=== PATIENT | male | born 1945 | race Two or more races ===

== ENCOUNTER 2016-09-01 12:52 | Emergency (ER) | payer BC, OTHER ==
[2016-09-01 13:07] VITALS: BMI 25.8
[2016-09-01] MEDS ORDERED: morphine CARPU-JECT 2 MG/1 ML DISP.SYRIN IVPUSH ONE ×2 (13:58→17:18)
[2016-09-01] MEDS ORDERED: DIPHTH,PERTUSS(ACELL),TET VAC 0.5 ML VIAL IM ONE (13:59)
--- NOTE | 2016-09-01 14:08 | PDOC ---
History of Present Illness - General History Source: Patient Exam Limitations: No Limitations - History of Present Illness Initial Comments: 09/01/16 19:13 The patient is a 71 year old male presenting with his , with a significant past medical history of borderline diabetes, who presents to the emergency department with a left forearm laceration after cutting himself with clippers while doing gardening work today. He notes that he tripped and fell on the clippers, which caused the laceration. He notes that the bleeding was profusely. Upon presentation the patient has the wound wrapped. He denies head injury or loss of consciousness, neck pain, back pain. He denies any other kind of injuries. The patient does not remember the last time he received a tetanus shot. The patient denies chest pain, shortness of breath, headache and dizziness. Allergies: None Past surgical history: Hernia Repair Social history: No alcohol, tobacco or drug use reported <Hakeem Cooney - Last Filed: 09/01/16 19:13> <Jamie Herrera - Last Filed: 09/01/16 20:39> - General Chief Complaint: Laceration Stated Complaint: INJURY, ARTERIAL LAC Time Seen by Provider: 09/01/16 13:32 Past History <Hakeem Cooney - Last Filed: 09/01/16 19:13> - Past Medical History Diabetes: (BORDERLINE) - Surgical History Abdominal Surgery: (HERNIA REPAIR) - Psycho/Social/Smoking Cessation Hx Suicidal Ideation: No Smoking History: Former smoker Have you smoked in the past 12 months: No Information on smoking cessation initiated: No Hx Alcohol Use: Yes (OCCASIONALLY) Drug/Substance Use Hx: No <Jamie Herrera - Last Filed: 09/01/16 20:39> - Past Medical History Allergies/Adverse Reactions: Allergies Allergy/AdvReac Type Severity Reaction Status Date / Time No Known Allergies Allergy Verified 09/01/16 13:07 Home Medications: Ambulatory Orders Cephalexin [Keflex] 500 mg PO TID #12 capsule 09/01/16 Review of Systems - Review of Systems Able to Perform ROS?: Yes Comments:: 09/01/16 19:13 CONSTITUTIONAL: No reported: Fever, Chills, Diaphoresis, Generalized Weakness, Malaise, Loss of Appetite HEENT: No reported: Rhinorrhea, Nasal Congestion, Throat Pain, Throat Swelling, Difficulty Swallowing, Mouth Swelling, Ear Pain, Eye Pain, Visual Changes CARDIOVASCULAR: No reported: Chest Pain, Syncope, Palpitations, Irregular Heart Rate, Lightheadedness, Peripheral Edema RESPIRATORY: No reported: Cough, Shortness of Breath, SOB with Exertion, Orthopnea, Wheezing , Stridor, Hemoptysis GASTROINTESTINAL: No reported: Abdominal pain, Abdominal Distension, Nausea, Vomiting, Diarrhea, Constipation, Melena, Hematochezia GENITOURINARY: No reported: Dysuria, Frequency, Urgency, Hesitancy, Flank Pain, Genital Pain MUSCULOSKELETAL: No reported: Myalgia, Arthralgia, Joint Swelling, Back pain, Neck Pain EXTREMITIES: Reported: +Left forearm laceration SKIN: No reported: Rash, Itching, Pallor HEMEATOLOGIC/IMMUNOLOGIC: No reported: Easy Bleeding, Easy Bruising, Lymphadenopathy, Frequent infections NEUROLOGIC: No reported: Headache, Focal Weakness, Paresthesias, Vertigo, Lightheadedness, Unsteady Gait, Seizure, Mental Status Changes, Incontinence <Hakeem Cooney - Last Filed: 09/01/16 19:13> *Physical Exam - Vital Signs Last Vital Signs Temp Pulse Resp BP Pulse Ox 98.2 F 89 16 146/86 97 09/01/16 12:57 09/01/16 12:57 09/01/16 12:57 09/01/16 12:57 09/01/16 12:57 - Physical Exam Comments: 09/01/16 19:13 GENERAL: The patient is awake, alert, and fully oriented, Nontoxic - in no acute distress. HEAD: Normocephalic, atraumatic. EYES: extraocular movements intact, sclera anicteric, conjunctiva clear. ENT: Normal voice, Moist mucous membranes. NECK: Normal range of motion, supple LUNGS: Breath sounds equal, clear to auscultation bilaterally. No wheezes, no rhonchi, no rales. HEART: Regular rate and rhythm, without murmur, rub or gallop. ABDOMEN: Soft, nontender, normoactive bowel sounds. No guarding, no rebound.No CVA tenderness EXTREMITIES: chronic defomrity of the R wrist, hematoma of R metacarpal with mild tenderness, ~6cm laceration noted on L forearm, no vascular/neuro structures presenting, motor/sensation intact in distal extremities tested indendently at each joint. No active bleeding NEUROLOGICAL: No facial assymetry, Normal speech, Back: No midline tenderness to the cervical, thoracic or lumbar spine Musculoskelatal: FROM of b/l shoulders, elbows, wrist. FROM of hips, knees, ankles - No signs of ecchymosis, erythema, or crepitus noted on palpation extremities, chest wall, clavicals, ribs, back. except as otherwise noted above PSYCH: Normal mood, normal affect. SKIN: Warm, Dry, normal turgor <Hakeem Cooney - Last Filed: 09/01/16 19:13> - Vital Signs Last Vital Signs Temp Pulse Resp BP Pulse Ox 98.2 F 89 16 146/86 97 09/01/16 12:57 09/01/16 12:57 09/01/16 12:57 09/01/16 12:57 09/01/16 12:57 <Jamie Herrera - Last Filed: 09/01/16 20:39> Procedures - Consent Consent obtained: Verbal - Splinting Splint Location: Right: Wrist Pre-Proc Neuro Vasc Exam: normal Hand-Made Type: orthoglass Splint Type: Yes: Ulnar (ulnar gutter) Post-Proc Neuro Vasc Exam: normal Yaya Bandage: 4" Sling: Yes Complications: No Post splint xray: No - Laceration/Wound Repair Left Lateral Arm Wound Length: 5.0 to 7.5 cm Wound Explored: clean Wound's Depth, Shape: superficial Irrigated w/ Saline: Yes Anesthesia: 1% Lidocaine Amount of Anesthetic (ccs): 7 Wound Debrided: minimal Wound Repaired With: Sutures Suture Size/Type: 4:0 Number of Sutures: 8 Layer Closure: No Sterile Dressing Applied: Yes <Jamie Herrera - Last Filed: 09/01/16 20:39> ED Treatment Course - LABORATORY CBC & Chemistry Diagram: 09/01/16 13:49 09/01/16 13:49 - ADDITIONAL ORDERS Additional order review: Laboratory Results 09/01/16 13:49 Sodium 139 Potassium 4.1 Chloride 101 Carbon Dioxide 28 Anion Gap 10 BUN 17 Creatinine 1.0 Creat Clearance w eGFR > 60 Random Glucose 97 Calcium 9.6 Total Bilirubin 0.5 AST 22 ALT 20 Alkaline Phosphatase 44 L Total Protein 7.3 Albumin 4.2 09/01/16 13:49 RBC 4.22 MCV 86.4 MCHC 33.8 RDW 13.5 MPV 8.6 Neutrophils % 73.3 Lymphocytes % 18.9 Monocytes % 6.7 Eosinophils % 0.6 Basophils % 0.5 - RADIOLOGY Radiograph Interpretation: 09/01/16 15:40 Left forearm X-Ray Reviewed by: Dr. Faustino decker Impression: No acute abnormalities are seen. Right hand x-ray Reviewed by: Dr. Faustino Decker Impression: Acute angulated fifth metacarpal neck fracture. Old head fracture distal radius. - Medications Given in the ED: ED Medications Discontinued Medications Generic Name Dose Route Start Last Admin Trade Name Freq PRN Reason Stop Dose Admin Diphtheria/Tetanus/Acell Pertussis 0.5 ml 09/01/16 13:59 09/01/16 14:30 Adacel Adolescent/Adult - IM 09/01/16 14:00 0.5 ml .ONCE ONE Administration Morphine Sulfate 2 mg 09/01/16 13:58 09/01/16 14:45 Morphine Injection - IVPUSH 09/01/16 13:59 2 mg ONCE ONE Administration <Hakeem Cooney - Last Filed: 09/01/16 19:13> - LABORATORY CBC & Chemistry Diagram: 09/01/16 13:49 09/01/16 13:49 - RADIOLOGY Radiology Studies Ordered: Category Date Time Status FOREARM- LEFT [RAD] Stat Radiology 09/01/16 13:59 Ordered HAND- RIGHT [RAD] Stat Radiology 09/01/16 13:59 Ordered <Jamie Herrera - Last Filed: 09/01/16 20:39> Medical Decision Making - Medical Decision Making 09/01/16 18:24 Dr. Drummond was called regarding the patient at 6:06pm Dr. Drummond was consulted regarding the patient at 6:23pm [phone] <Hakeem Cooney - Last Filed: 09/01/16 19:13> - Medical Decision Making 09/01/16 14:00 71y M hx of borderline DM, presents with complaint s/p fall, and cut his R forearm, pt also complaints of swelling and pain to his L hand. It was originally pulsatile, but upon exploration therew s no active bleeding, neuro and motor exam was normal and each joint was examined independently and was intact, sensation intact. no fb noted. 09/01/16 18:09 laceration irrigated and explored - no vascular or neurologic structures or injuries appreciated sutures placed by medical student with my supervision good approximation pt with a boxers fracture that is displaced - will notify the ortho, likely splint and ortho follow up. 09/01/16 17:10 case was dw ortho (FROILAN honeycutt from [facility]) agree with ulnar gutter and wednesday fu with dr. salcedo. the pt was placed in ulnar gutter and placed in a sling. will give prophylaxis abx tetenaus uptdated will hvae pt return in 10 days for suture removal. will have pt fu with dr salcedo on wednesday. Return precautions were discussed I discussed the physical exam findings, ancillary test results and final diagnoses with the patient. I answered all of the patient's questions. The patient was satisfied with the care received and felt comfortable with the discharge plan and treatment plan. The patient will call their primary care physician within 24 hours to arrange follow-up and will return to the Emergency Department with any new, persistent or worsening symptoms. A portion of this note was documented by scribe services under my direction. I have reviewed the details of the note, within reason, and agree with the documentation with the following case summary and management plan written by me <Jamie Herrera - Last Filed: 09/01/16 20:39> *DC/Admit/Observation/Transfer - Attestations Scribe Attestion: 09/01/16 19:13 Documentation prepared by Hakeem Cooney, acting as hospitalist medical director for Jamie Herrera MD <Hakeem Cooney - Last Filed: 09/01/16 19:13> - Discharge Dispostion Admit: No <Jamie Herrera - Last Filed: 09/01/16 20:39> Diagnosis at time of Disposition: Boxer's metacarpal fracture, neck, closed Qualifiers: Encounter type: initial encounter Metacarpal bone: fifth Fracture alignment: displaced Laterality: right Qualified Code(s): S62.336A - Displaced fracture of neck of fifth metacarpal bone, right hand, initial encounter for closed fracture Laceration of forearm Qualifiers: Encounter type: initial encounter Laterality: left Qualified Code(s): S51.812A - Laceration without foreign body of left forearm, initial encounter - Discharge Dispostion Disposition: HOME - Prescriptions Prescriptions: Cephalexin [Keflex] 500 mg PO TID #12 capsule - Referrals Referrals: Hao Lee MD [Primary Care Provider] - Theron Salcedo MD [Staff Physician] - - Patient Instructions Printed Discharge Instructions: DI for Laceration Repair, DI for Boxer's Fracture Additional Instructions: Return to the emergency department immediately with ANY new, persistent or worsening symptoms including any redness, bleeding, purulent discharge, swelling or other concerns. Keep the area clean and dry for 48 hours. Afterwards he may clean gently with soap and water. Apply bacitracin twice a day. Keep the area away from the sun for the next 9 months, please use sunscreen and wear a hat if you need to be in the sun to improve appearance of the scar. Return in 10-14 days for suture removal. You MUST call and follow up with your doctor tomorrow for further evaluation of your symptoms. Results were discussed with you. Please make sure your doctor reviews the results of your emergency evaluation. Please follow up with dr. Salcedo on Wednesday for reevaluation of your fracture. Keep the splint on until you are evaluated by Dr. Salcedo. Keep the splint dry. (Put a bag over it while you are showering) Print Language: GREENLANDIC
[2016-09-01] MEDS ORDERED: morphine CARPU-JECT 2 MG/1 ML DISP.SYRIN ONE (14:31)
[2016-09-01 14:41] LABS: BASOPHIL 0.5 % (0-2.0); EOSINOPHIL 0.6 % (0-4.5); MCH 29.2 pg (25.7-33.7); MCHC 33.8 g/dl (32.0-35.9); MEAN CELL VOLUME 86.4 fl (80-96); MEAN PLT VOLUME 8.6 fl (7.5-11.1); NEUTROPHILS 73.3 % (42.8-82.8); PLATELET COUNT 225 K/MM3 (134-434); RDW 13.5 % (11.9-15.9); WHITE BLOOD COUNT 8.8 K/mm3 (4.0-10.0)
[2016-09-01] MEDS ORDERED: CEFAZOLIN 1 GM/D5W 50 ML IVPB ONE (14:46)
[2016-09-01 15:05] LABS: ALBUMIN 4.2 g/dl (3.4-5.0); ALK PHOS 44 U/L (45-117); ANION GAP 10 (8-16); BILIRUBIN,TOTAL 0.5 mg/dL (0.2-1.0); CALCIUM 9.6 mg/dL (8.5-10.1); CO2 28 mmol/L (21-32); COCKROFT - GAULT 68.54; GLUCOSE,RANDOM 97 mg/dL (74-106); SGOT/AST 22 U/L (15-37); SGPT/ALT 20 U/L (12-78); TOT PROT 7.3 g/dl (6.4-8.2)
[2016-09-01] MEDS ORDERED: CEFAZOLIN (PRE-DOCKED) 50 ML IVPB ONE (16:43)
[2016-09-01] MEDS ORDERED: LIDOCAINE 1%/EPI 1:100000 (50 ML MULTI DOSE VIAL) ONE (16:52)
[2016-09-01] MEDS ORDERED: SODIUM CHLORIDE 500 ML IV STA (18:30)
[2016-09-01 20:06] VITALS: BP 133/62; PULSE 71; TEMP 99
== END 2016-09-01 19:30 | disposition home or self-care (01) ==
LOC: JER 12:52
PROC: 3E0234Z Introduction of Serum, Toxoid and Vaccine into Muscle, Percutaneous Approach (ICD-10-PCS; principal; 2016-09-01)
PROC: 3E0337Z Introduction of Electrolytic and Water Balance Substance into Peripheral Vein, Percutaneous Approach (ICD-10-PCS; 2016-09-01)
PROC: 3E03329 Introduction of Other Anti-infective into Peripheral Vein, Percutaneous Approach (ICD-10-PCS; 2016-09-01)
PROC: 3E033NZ Introduction of Analgesics, Hypnotics, Sedatives into Peripheral Vein, Percutaneous Approach (ICD-10-PCS; 2016-09-01)
PROC: 2W3CX1Z Immobilization of Right Lower Arm using Splint (ICD-10-PCS; 2016-09-01)
PROC: 0HQEXZZ Repair Left Lower Arm Skin, External Approach (ICD-10-PCS; 2016-09-01)
DX: S62.336A Displaced fracture of neck of fifth metacarpal bone, right hand, initial encounter for closed fracture (principal); S51.812A Laceration without foreign body of left forearm, initial encounter; W01.118A Fall on same level from slipping, tripping and stumbling with subsequent striking against other sharp object, initial encounter; Y93.H2 Activity, gardening and landscaping; Y92.017 Garden or yard in single-family (private) house as the place of occurrence of the external cause; Y99.8 Other external cause status
CPT/HCPCS: 36415; 73090-TC-LT; 73130-TC-RT; 80053; 85025; 99283-25

== ENCOUNTER 2016-09-05 13:33 | Emergency (ER) | payer BC, OTHER ==
[2016-09-05 13:48] VITALS: TEMP 98.5; BMI 25.0
[2016-09-05] MEDS ORDERED: CLINDAMYCIN HCL 150 MG CAPSULE (FP) PO ONE (14:28)
--- NOTE | 2016-09-05 14:34 | PDOC ---
History of Present Illness - General History Source: Patient, Old Records Exam Limitations: No Limitations <DevinCheri - Last Filed: 09/05/16 14:28> - General History Source: Patient Exam Limitations: No Limitations - History of Present Illness Initial Comments: 09/05/16 14:34 The patient is a 71 year old male, with a significant past medical history of borderline diabetes who presents to the emergency department with swelling and drainage from wound on L forearm. The patient was seen in the ED on 09/01/2016 for laceration after falling on a clipper while working in a garden. The patient has been following Cephalexin regimen for antibiotic therapy however has noticed bloody drainage and erythema surrounding the wound. The patient presents for further evaluation. He denies chest pain, headache or dizziness. He denies fever, chills, nausea, vomit, diarrhea or constipation. He denies dysuria, frequency, urgency or hematuria. Allergies: NKA Past surgical history: hernia repair Social history: Denies toxic habits PCP: Dr. Jesus Bui <Ivy Daniel - Last Filed: 09/05/16 14:35> - General Chief Complaint: Wound Infection Stated Complaint: WOUND INFECTION Time Seen by Provider: 09/05/16 14:10 Past History - Past Medical History Diabetes: (BORDERLINE) Hypercholesterolemia: Yes - Surgical History Abdominal Surgery: (HERNIA REPAIR) - Psycho/Social/Smoking Cessation Hx Suicidal Ideation: No Smoking History: Former smoker Have you smoked in the past 12 months: No Information on smoking cessation initiated: No Hx Alcohol Use: Yes (OCCASIONALLY) Drug/Substance Use Hx: No <Cheri Beltran - Last Filed: 09/05/16 14:28> <Ivy Daniel - Last Filed: 09/05/16 14:35> - Past Medical History Allergies/Adverse Reactions: Allergies Allergy/AdvReac Type Severity Reaction Status Date / Time No Known Allergies Allergy Verified 09/05/16 13:48 Home Medications: Ambulatory Orders Cephalexin [Keflex] 500 mg PO TID #12 capsule 09/01/16 Clindamycin [Cleocin -] 300 mg PO TID #21 capsule 09/05/16 Review of Systems - Review of Systems Able to Perform ROS?: Yes Comments:: 09/05/16 14:35 CONSTITUTIONAL: Absent: fever, no chills, no fatigue EYES: Absent: visual changes ENT: Absent: ear pain, no sore throat CARDIOVASCULAR: Absent: chest pain, no palpitations RESPIRATORY: Absent: cough, no SOB GI: Absent: abdominal pain, no nausea, no vomiting, no constipation, no diarrhea GENITOURINARY: Absent: dysuria, no frequency, no hematuria MUSCULOSKELETAL: Absent: back pain, no arthralgia, no myalgia SKIN: +L forearm wound pain. Absent: rash <Ivy Daniel - Last Filed: 09/05/16 14:35> *Physical Exam - Vital Signs Last Vital Signs Temp Pulse Resp BP Pulse Ox 98.5 F 83 18 144/81 99 09/05/16 13:44 09/05/16 13:44 09/05/16 13:44 09/05/16 13:44 09/05/16 13:44 <Cheri Beltran - Last Filed: 09/05/16 14:28> - Vital Signs Last Vital Signs Temp Pulse Resp BP Pulse Ox 98.5 F 83 18 144/81 99 09/05/16 13:44 09/05/16 13:44 09/05/16 13:44 09/05/16 13:44 09/05/16 13:44 - Physical Exam Comments: 09/05/16 14:35 GENERAL: Well-appearing, well-nourished. No apparent distress. HEENT: Normocephalic, atraumatic. PERRL, EOM intact. CARDIOVASCULAR: Normal S1, S2. Regular rate and rhythm. PULMONARY: Clear to auscultation bilaterally. ABDOMEN: Soft, non-distended, non-tender. EXTREMITIES: Normal ROM in all four extremities. No gross deformities. SKIN: + 4 cm irregularly shaped laceration to the L forearm with mild swelling around the wound and a small amount of erythema. Serosanguinous drainage. Warm, dry. No rash NEUROLOGICAL: No focal neurological deficits. <Ivy Daniel - Last Filed: 09/05/16 14:35> Medical Decision Making - Medical Decision Making 09/05/16 14:28 71 y/o male with no significant PMHx seen in the ED on 09/01 with laceration to the left forearm and Boxer's fx to the right hand s/p mechanical fall. He was discharged on Keflex and today noticed swelling around the wound with some serosanguinous drainage. There are early signs of infection but no purulent drainage and no streaking erythema. Plan: 1. Will change the antibiotic to clindamycin 300mg PO TID for MRSA coverage and discontinue Keflex 2. Follow-up with me on Wednesday for wound check 3. Return to the ED sooner if the wound appears to worsen, fever, or any other Sx. <Cheri Beltran - Last Filed: 09/05/16 14:28> *DC/Admit/Observation/Transfer - Discharge Dispostion Admit: No - Attestations Physician Attestion: 09/05/16 14:32 I, Dr. Cheri Beltran, attest that the scribes documentation that appears above has been prepared under my direction and personally reviewed by me in its entirety. I confirmed that the note above accurately reflects all work, treatment, procedures, and medical decision-making performed by me. <Cheri Beltran - Last Filed: 09/05/16 14:28> - Attestations Scribe Attestion: 09/05/16 14:35 Documentation prepared by Ivy Daniel, acting as medical education specialist for Cheri Beltran MD <Ivy Daniel - Last Filed: 09/05/16 14:35> Diagnosis at time of Disposition: Wound infection - Prescriptions Prescriptions: Clindamycin [Cleocin -] 300 mg PO TID #21 capsule - Referrals Referrals: Hao Lee MD [Primary Care Provider] - - Patient Instructions Printed Discharge Instructions: DI for Wound Infection Additional Instructions: The wound that you sustained appears to have an early infection. Please discontinue taking the Keflex and start Clindamycin 300mg-one tablet 3 times per day for one week. Please come to the [place] [facility] on Wednesday for a wound check; however, if the wound appears to be getting worse, you have fever or any other symptoms, please come to the ED sooner.
[2016-09-05] MEDS ORDERED: CLINDAMYCIN HCL 150 MG CAPSULE (FP) ONE (14:50)
[2016-09-05 16:25] VITALS: BP 148/80; PULSE 70
== END 2016-09-05 16:25 | disposition home or self-care (01) ==
LOC: JER 13:33
DX: T81.4XXA Infection following a procedure, initial encounter (principal); L08.89 Other specified local infections of the skin and subcutaneous tissue
CPT/HCPCS: 99281-25